=== PATIENT | male | born 1985 | race Two or more races ===

== ENCOUNTER 2019-02-03 14:11 | Emergency (ER) | payer OTHER ==
[~2019-02-03] VITALS: Ht 154.9 cm; Wt 99.8 kg
[2019-02-03 15:13] LABS: Basophils # (auto) 0.1 uL; Basophils % (auto) 0.8 % (0.0-2.0); Eosinophils # (auto) 0 uL; Eosinophils % (auto) 0.4 % (0.0-7.0); Hematocrit 46.3 % (41.0-53.0); Lymphocytes # (auto) 2.2 uL; Lymphocytes % (auto) 24.5 % (10.0-50.0); Mean Corpuscular Hemoglobin 32.3 pg (28.0-32.0); Mean Corpuscular Hgb Conc. 34.5 g/dL (32.0-36.0); Mean Corpuscular Volume 93.6 fL (80.0-100.0); Monocytes # (auto) 0.7 uL; Monocytes % (auto) 8.1 % (0.0-12.0); Neutrophils # (auto) 5.9 uL; Neutrophils % (auto) 66.2 % (37.0-80.0); Platelet Count (auto) 198 10^3/uL (140-450); Red Blood Cells 4.95 10^6/uL (4.5-5.90); Red Cell Distribution Width 13.6 % (11.8-14.3); White Blood Cell 8.9 10^3/uL (4.4-10.8)
[2019-02-03 15:34] LABS: Potassium 3.9 mmol/L (3.5-5.1)
[2019-02-03 15:36] LABS: BUN/Creatinine Ratio 14.4; Bilirubin, Total 0.9 mg/dL (0.2-1.0); Total Protein 7.5 g/dL (6.4-8.2)
[2019-02-03 20:07] LABS: Urine Bacteria FEW /hpf (None Seen); Urine Blood Negative /uL (Negative); Urine Mucus FEW (None Seen); Urine Specific Gravity 1.031 (1.001-1.035); Urine WBC <1 /hpf (0 - 3)
[2019-02-03 20:14] LABS: Amylase 52 U/L (25-115); Lipase 99 U/L (73-393)
[2019-02-03 22:00] VITALS: BP 116/67
== END 2019-02-04 00:14 | disposition home or self-care (01) ==
LOC: ER 14:11 → EEVIPCON 14:11 → EDBD 14:11 → ER 02-04 00:14
DX: K80.20 Calculus of gallbladder without cholecystitis without obstruction (principal)
CPT/HCPCS: 36415; 76705; 80053; 81001; 82150; 83690; 85025

== ENCOUNTER 2021-10-23 10:42 | Inpatient (IN) | payer OTHER ==
[~2021-10-23] VITALS: Ht 175.3 cm; Wt 137.0 kg
[2021-10-23] MEDS ORDERED: LIDOCAINE VISCOUS 2% 15ML UD PO ONE (11:15)
[2021-10-23] MEDS ORDERED: ONDANSETRON HCL 4 MG/2 ML VIAL IV ONE (11:15)
[2021-10-23] MEDS ORDERED: ALUM & MAG HYDROX-SIMETH LIQ(MAALOX) 30 ML PO ONE (11:15)
[2021-10-23] MEDS ORDERED: FAMOTIDINE (10MG/ML) 2ML VL IV ONE (11:15)
[2021-10-23 12:05] LABS: Basophils # (auto) 0 10 ^3/uL (0-0.2); Basophils % (auto) 0.7 % (0.0-2.0); Eosinophils # (auto) 0.1 10 ^3/uL (0-0.8); Eosinophils % (auto) 1.4 % (0.0-7.0); Hematocrit 48.7 % (41.0-53.0); Hemoglobin 17.1 g/dL (13.5-17.5); Lymphocytes # (auto) 2.3 10 ^3/uL (0.4-5.4); Lymphocytes % (auto) 37.3 % (10.0-50.0); Mean Corpuscular Hemoglobin 32.9 pg (28.0-32.0); Mean Corpuscular Volume 93.8 fL (80.0-100.0); Monocytes # (auto) 0.6 10 ^3/uL (0-1.3); Monocytes % (auto) 9.5 % (0.0-12.0); Neutrophils # (auto) 3.2 10 ^3/uL (1.6-8.6); Neutrophils % (auto) 51.1 % (37.0-80.0); Nucleated Red Blood Cells % 0.4 %; Red Blood Cells 5.19 10^6/uL (4.5-5.90); Red Cell Distribution Width 13.4 % (11.8-14.3); White Blood Cell 6.3 10^3/uL (4.4-10.8)
[2021-10-23 12:18] LABS: Albumin 4.1 g/dL (3.4-5.0); BUN/Creatinine Ratio 10.2; Calcium 9.6 mg/dL (8.5-10.1); Potassium 4.5 mmol/L (3.5-5.1)
[2021-10-23 12:21] LABS: Total Protein 8.2 g/dL (6.4-8.2)
[2021-10-23] MEDS ORDERED: KETOROLAC TROMETH 30 MG/ML 1ML VIAL IV ONE (13:15)
[2021-10-23] MEDS ORDERED: MORPHINE SULFATE 4 MG/ML SYR/VIAL IV PRN ×2 (15:15→19:15)
[2021-10-23] MEDS: D5W/SOD CHLO 0.9% 1,000 ML IV ONE ×2 (15:15→16:06)
[2021-10-23] MEDS ORDERED: metroNIDAZOLE 500MG/100ML 100 ML IV SCH (15:38)
[2021-10-23] MEDS ORDERED: levoFLOXacin 500MG 100 ML IV ONE (16:00)
[2021-10-23] MEDS ORDERED: D5W/SOD CHL 0.45% 1,000 ML IV ONE (16:15)
[2021-10-23 16:49] LABS: INR 1.08 (0.9-1.15); Partial Thromboplastin Time 28.8 sec (23.6-33.0)
[2021-10-23] MEDS: D5W/SOD CHL 0.45%/KCL 20MEQ 1,000 ML IV SCH ×2 (19:51→22:57)
[2021-10-23 21:20] VITALS: BP_SYST 120
[2021-10-23 22:00] VITALS: BP 120/72
[2021-10-23] MEDS: MORPHINE SULFATE 4 MG/ML SYR/VIAL IV PRN (22:50)
[2021-10-23] MEDS: ONDANSETRON HCL 4 MG/2 ML VIAL IV PRN (22:51)
[2021-10-24] MEDS: MORPHINE SULFATE 4 MG/ML SYR/VIAL IV PRN ×4 (03:47→20:41)
[2021-10-24 05:00] VITALS: BP 109/61
[2021-10-24 05:50] LABS: Basophils # (auto) 0 10 ^3/uL (0-0.2); Basophils % (auto) 0.4 % (0.0-2.0); Eosinophils # (auto) 0.1 10 ^3/uL (0-0.8); Eosinophils % (auto) 1.9 % (0.0-7.0); Hematocrit 44.7 % (41.0-53.0); Hemoglobin 15.5 g/dL (13.5-17.5); Lymphocytes # (auto) 2.8 10 ^3/uL (0.4-5.4); Lymphocytes % (auto) 45.8 % (10.0-50.0); Mean Corpuscular Hemoglobin 32.8 pg (28.0-32.0); Mean Corpuscular Hgb Conc. 34.7 g/dL (32.0-36.0); Mean Corpuscular Volume 94.4 fL (80.0-100.0); Monocytes # (auto) 0.6 10 ^3/uL (0-1.3); Monocytes % (auto) 10.3 % (0.0-12.0); Neutrophils # (auto) 2.6 10 ^3/uL (1.6-8.6); Neutrophils % (auto) 41.6 % (37.0-80.0); Nucleated Red Blood Cells % 0.1 %; Red Blood Cells 4.74 10^6/uL (4.5-5.90); Red Cell Distribution Width 13.4 % (11.8-14.3); White Blood Cell 6.2 10^3/uL (4.4-10.8)
[2021-10-24 06:05] LABS: Albumin 3.5 g/dL (3.4-5.0); Calcium 8.7 mg/dL (8.5-10.1); Potassium 3.9 mmol/L (3.5-5.1)
[2021-10-24 06:09] LABS: Bilirubin, Total 0.9 mg/dL (0.2-1.0); Total Protein 6.8 g/dL (6.4-8.2)
[2021-10-24 08:38] VITALS: BP 106/66
[2021-10-24] MEDS: D5W/SOD CHL 0.45%/KCL 20MEQ 1,000 ML IV SCH (08:48)
[2021-10-24] MEDS: PANTOPRAZOLE 40 MG/10 ML VIAL INJ IV SCH (08:48)
[2021-10-24] MEDS ORDERED: BUPIVACAINE HCL 0 ML ONE (12:06)
[2021-10-24] MEDS ORDERED: ENOXAPARIN SOD 40 MG/0.4 ML SYRINGE SC ONE (12:30)
[2021-10-24 12:46] VITALS: BP 151/86
[2021-10-24 16:42] VITALS: BP 113/60
[2021-10-24 21:06] VITALS: BP 115/67
[2021-10-24] MEDS ORDERED: ENOXAPARIN SOD 40 MG/0.4 ML SYRINGE SC SCH (22:00)
[2021-10-25] MEDS: D5W/SOD CHL 0.45%/KCL 20MEQ 1,000 ML IV SCH ×3 (00:57→22:01)
[2021-10-25] MEDS: MORPHINE SULFATE 4 MG/ML SYR/VIAL IV PRN (01:36)
[2021-10-25] MEDS: ONDANSETRON HCL 4 MG/2 ML VIAL IV PRN ×2 (01:37→08:48)
[2021-10-25 05:00] VITALS: BP 106/59
[2021-10-25 06:25] LABS: Potassium 4.4 mmol/L (3.5-5.1)
[2021-10-25 06:35] LABS: Albumin 3.6 g/dL (3.4-5.0); BUN/Creatinine Ratio 8.7; Bilirubin, Total 0.8 mg/dL (0.2-1.0); Calcium 9.2 mg/dL (8.5-10.1); Total Protein 7.2 g/dL (6.4-8.2)
[2021-10-25] MEDS: PANTOPRAZOLE 40 MG/10 ML VIAL INJ IV SCH (08:48)
[2021-10-25 09:00] VITALS: BP 108/65
[2021-10-25 13:00] VITALS: BP 95/50
[2021-10-25 17:00] VITALS: BP 105/66
[2021-10-25] MEDS ORDERED: ACETAMINOPHEN 325 MG TAB PO PRN (19:00)
[2021-10-25 22:00] VITALS: BP 104/72
[2021-10-26 05:00] VITALS: BP 99/58
[2021-10-26 09:58] VITALS: BP 99/29
[2021-10-26] MEDS ORDERED: SUMAtriptan SUCCINATE 25 MG TAB PO PRN (10:30)
[2021-10-26 13:09] VITALS: BP 111/62
[2021-10-26 17:16] VITALS: BP 111/50
[2021-10-26 20:00] VITALS: BP 115/50
[2021-10-26 22:00] VITALS: BP 106/66
[2021-10-27] MEDS: D5W/SOD CHL 0.45%/KCL 20MEQ 1,000 ML IV SCH (04:37)
[2021-10-27 05:05] VITALS: BP 98/64
[2021-10-27] MEDS: LIDOCAINE 1%HCL (LOCAL ANESTH) 10 ML MDV ONE ×4 (06:51→08:25)
[2021-10-27] MEDS ORDERED: BUPIVACAINE HCL 50 ML ONE (06:51)
[2021-10-27] MEDS ORDERED: cefOXitin 2GM/100ML 100 ML IV ONE (07:06)
[2021-10-27] MEDS ORDERED: MIDAZOLAM HCL 2MG/2ML 2ml VIAL (1mg/ml) ONE (07:31)
[2021-10-27] MEDS ORDERED: ROCURONIUM 10MG/ML 10ML VIAL IV ONE (07:31)
[2021-10-27] MEDS ORDERED: fentaNYL CITRATE 100 MCG/2 ML VL ONE (07:31)
[2021-10-27] MEDS ORDERED: PROPOFOL 10 MG/ML 20 ML IV ONE (07:34)
[2021-10-27] MEDS ORDERED: ONDANSETRON HCL 4 MG/2 ML VIAL ONE (07:34)
[2021-10-27] MEDS ORDERED: LIDOCAINE 2% (LOCAL ANESTH.) PF 5ml SDV ONE (07:34)
[2021-10-27] MEDS ORDERED: ONDANSETRON HCL 4 MG/2 ML VIAL IV PRN (08:15)
[2021-10-27] MEDS ORDERED: HYDROmorphone HCL 2 MG/ML VL/or syr IV PRN (08:15)
[2021-10-27] MEDS ORDERED: GLYCOPYRROLATE 0.2 MG/ML 1ML VIAL ONE (08:22)
[2021-10-27] MEDS ORDERED: NEOSTIGMINE 1 MG/ML INJ (10mg/10ML VIAL) ONE (08:22)
[2021-10-27] MEDS ORDERED: HYDROcodone-ACET 5/325MG TAB PO PRN (08:30)
[2021-10-27] MEDS ORDERED: MORPHINE SULFATE 4 MG/ML SYR/VIAL IV PRN (08:30)
[2021-10-27] MEDS: HYDROmorphone HCL 2 MG/ML VL/or syr IV PRN ×3 (08:40→09:12)
[2021-10-27 10:00] VITALS: BP 131/75
[2021-10-27 12:00] VITALS: BP 129/72
[2021-10-27] MEDS: ONDANSETRON HCL 4 MG/2 ML VIAL IV PRN (14:05)
[2021-10-27 16:00] VITALS: BP 109/61
[2021-10-27] MEDS: HYDROcodone-ACET 5/325MG TAB PO PRN ×2 (16:28→22:46)
[2021-10-27 18:40] VITALS: BP 123/78
[2021-10-27 22:00] VITALS: BP 121/87
== END 2021-10-27 22:42 | DRG 419 ==
LOC: EEVIPCON 10:42 → ER 10:42 → EDBD 10:42 → OVERFLOW 15:02 → WEST WING 21:13
PROVIDERS: ADMIT Internal Medicine; ATTEND Internal Medicine
PROC: 0FT44ZZ Resection of Gallbladder, Percutaneous Endoscopic Approach (ICD-10-PCS; principal; 2021-10-27 07:32)
DX: K80.20 Calculus of gallbladder without cholecystitis without obstruction (principal); E78.5 Hyperlipidemia, unspecified; K21.9 Gastro-esophageal reflux disease without esophagitis; Z20.822 Contact with and (suspected) exposure to COVID-19; R51.9 Headache, unspecified; Z87.891 Personal history of nicotine dependence; Z90.49 Acquired absence of other specified parts of digestive tract
CPT/HCPCS: 36415; 71046; 76705; 80053; 83690; 85025; 85610; 85730; 87081; 96365; 96367; 96375; C9113; G0378; J0694; J1885; J1956; J2001; J2250; J2405; J2704; J3490; J7060